=== PATIENT | male | born 1960 | race Caucasian/White ===

== ENCOUNTER 2018-01-24 17:09 | Emergency (ER) | payer BC ==
[2018-01-24] MEDS: DIPHENHYDRAMINE 50 MG INJ IM ×2 (17:42→17:44)
[2018-01-24] MEDS: METHYLPREDNISOLONE 125 MG INJ IM ×2 (17:42→17:45)
== END 2018-01-24 17:56 | disposition home or self-care (01) ==
LOC: FTE 17:09
DX: R21 Rash and other nonspecific skin eruption (principal); J44.9 Chronic obstructive pulmonary disease, unspecified; F17.210 Nicotine dependence, cigarettes, uncomplicated; I10 Essential (primary) hypertension
CPT/HCPCS: 96372; 99284-25

== ENCOUNTER 2019-02-04 16:41 | Emergency (ER) | payer BC ==
[2019-02-04] MEDS: ASPIRIN 81 MG TAB PO (17:10)
[2019-02-04 17:13] LABS: ADD MAN DIFF? NO
[2019-02-04 17:15] LABS: BASOPHIL # 0.1 10^3/ul (0.0-0.1); BASOPHILS % 0.7 % (0.0-2.0); EOSINOPHILS # 0.2 10^3/ul (0.0-0.5); EOSINOPHILS % 2.1 % (0.0-7.0); HEMATOCRIT 45.8 % (42.0-52.0); HEMOGLOBIN 14.7 g/dl (14.0-18.0); LYMPHOCYTES # 2.3 10^3/ul (0.8-2.9); LYMPHOCYTES % 29.9 % (15.0-51.0); MEAN CORPUSCULAR HEMOGLOBIN 31.1 pg (29.0-33.0); MEAN CORPUSCULAR HGB CONC 32.1 g/dl (32.0-37.0); MEAN CORPUSCULAR VOLUME 96.8 fl (82.0-101.0); MONOCYTE # 0.8 10^3/ul (0.3-0.9); MONOCYTES % 10.3 % (0.0-11.0); NEUTROPHIL # 4.4 10^3/ul (1.6-7.5); NEUTROPHILS % 56.7 % (39.0-77.0); PLATELET COUNT 249 10^3/UL (140-415); RED BLOOD COUNT 4.73 10^6/ul (4.70-6.10); RED CELL DISTRIBUTION WIDTH 13.8 % (11.5-14.5)
[2019-02-04 17:15] LABS: WHITE BLOOD COUNT 7.7 10^3/ul (4.8-10.8)
[2019-02-04 17:45] LABS: ANION GAP 9 (5-13); BLOOD UREA NITROGEN 18 mg/dl (7-20); CALCIUM 10.3 mg/dl (8.4-10.2); CARBON DIOXIDE 30 mmol/L (21-31); CHLORIDE 103 mmol/L (97-110); CREATININE 1.22 mg/dl (0.61-1.24); Estimated GFR > 60 mL/min (>60); GLUCOSE 102 mg/dl (70-220); POTASSIUM 4.9 mmol/L (3.5-5.1); SODIUM 142 mmol/L (135-144)
[2019-02-04 17:56] LABS: B-TYPE NATRIURETIC PEPTIDE 598 PG/ML (0-125); TROPONIN-I < 0.012 ng/ml (0.000-0.120)
[2019-02-04] MEDS: METHYLPREDNISOLONE 125 MG INJ IV (19:06)
[2019-02-04] MEDS: IPRATROPIUM (NEB) 0.5 MG/2.5 ML AMP INH (19:16)
[2019-02-04] MEDS: ALBUTEROL 0.5% (NEB) 2.5 MG/0.5 ML AMP INH (19:16)
[2019-02-04 21:34] LABS: TROPONIN-I < 0.012 ng/ml (0.000-0.120)
== END 2019-02-04 21:58 | disposition home or self-care (01) ==
LOC: E/R 16:41
DX: J44.1 Chronic obstructive pulmonary disease with (acute) exacerbation (principal); R79.89 Other specified abnormal findings of blood chemistry; I10 Essential (primary) hypertension; F17.210 Nicotine dependence, cigarettes, uncomplicated
CPT/HCPCS: 36415; 71045; 80048; 83880; 84484; 85025; 93005; 94644; 96374; 99285-25